=== PATIENT | female | born 1960 | race Caucasian/White ===

== ENCOUNTER 2024-01-12 06:33 | Day surgery (SDC) | payer OTHER ==
[2024-01-09 11:59] LABS: Absolute Basophils 0.1 K/uL (0-0.5); Absolute Eosinophils 0.6 K/uL (0-0.5); Absolute Lymphocytes (CBC) 1.7 K/uL (0.7-4.9); Absolute Monocytes 0.6 K/uL (0.1-1.3); Absolute Neutrophil 4.3 K/uL (1.8-8.0); Basophils % 1.3 % (0-1.3); Hematocrit 31.8 % (36.0-45.0); Hemoglobin 10.2 g/dL (12.0-15.0); Lymphocytes % 23.6 % (15.3-44.8); MCH 29.4 pg (27.0-35.0); MCHC 32.2 g/dL (32.0-36.0); MCV 91.2 fL (80-100); Neutrophils % 59.1 % (41.7-73.7); Platelets 327 thou/uL (152-406); RBC Red Blood Cell Count 3.49 M/uL (3.86-4.86); Red Cell Distribution Width 14.5 % (12.1-15.2)
[2024-01-09 12:12] LABS: Anion Gap 10.2 mEq/L (5.0-15.0); Potassium 3.2 mEq/L (3.5-5.1)
[2024-01-12] MEDS: NA CHLORIDE 0.9% 1,000 ML ONE (06:55)
[2024-01-12 07:06] VITALS: O2SAT 100
[2024-01-12] MEDS ORDERED: MIDAZOLAM HCL 2 MG/2 ML INJ ONE (07:11)
[2024-01-12] MEDS ORDERED: FENTANYL CITR 100 MCG/2 ML ONE (07:11)
[2024-01-12] MEDS ORDERED: LIDOCAINE 1% MPF 5 ML VIAL ONE (07:11)
[2024-01-12] MEDS ORDERED: propofoL 200 MG/20 ML VIAL IV ONE (07:11)
[2024-01-12] MEDS: BUPIVACAINE 0.5% PF 10 ML VIAL ONE (07:16)
[2024-01-12] MEDS: CEFAZOLIN SODIUM 2 GM/VIAL ONE (07:16)
[2024-01-12] MEDS ORDERED: EPHEDRINE SULF 50 MG/ML VIAL ONE (08:10)
[2024-01-12] MEDS ORDERED: dexAMETHasone 4 MG/ML VIAL ONE (08:16)
[2024-01-12] MEDS ORDERED: ONDANSETRON 4 MG/2 ML VIAL ONE (08:16)
[2024-01-12] MEDS ORDERED: KETOROLAC 30 MG/ML INJ ONE (08:16)
[2024-01-12] MEDS: COLLAGENASE 30 GM OINTMENT TOP ONE (08:38)
[2024-01-12] MEDS ORDERED: HYDROCODONE/APAP 7.5/325 MG TAB PO PRN (08:40)
--- NOTE | 2024-01-12 08:43 | P.OP ---
Date of Service: 01/12/24 Preop diagnosis: Sacral decubitus, nonhealing Postop diagnosis: Same Procedure performed: Excisional debridement of sacral decubitus 4 x 3.5 x 3.5 cm to subcutaneous tissue and fascia Surgeon: Frederic Chang MD Elevator Dispatcher: None Estimated blood loss: Minimal Specimen: Necrotic tissue for cultures and debridement tissue Findings: As above Anesthesia: General Complications: None Drains: None Fluids and blood products: Nonapplicable Disposition: Recovery room Operative note: Patient brought to the OR and placed in supine position. General anesthesia began. Patient placed in the right lateral position. Patient prepped and draped in the usual sterile fashion. Marcaine 0.5% infiltrated locally. Sharp dissection used to excise the edge of the wound that was hypertrophic. Bleeding controlled cautery. Necrotic fibrin debrided down to the deep subcutaneous tissue. Bleeding controlled with cautery. Wound irrigated. All nonviable tissue debrided. Infected tissue sent for cultures. Santyl wet-to-dry normal saline dressing change applied. Patient awakened and taken to recovery room in good general condition. CC:
[2024-01-12 09:39] VITALS: BP 94/55; TEMP 97.2
== END 2024-01-12 10:45 | disposition home or self-care (01) ==
LOC: DS 06:33
PROVIDERS: ATTEND Surgery
PROC: 0JB70ZZ Excision of Back Subcutaneous Tissue and Fascia, Open Approach (ICD-10-PCS; principal; 2024-01-12 07:30)
DX: L89.153 Pressure ulcer of sacral region, stage 3 (principal); E11.9 Type 2 diabetes mellitus without complications
CPT/HCPCS: 87070; 85025; 80048; 36415; 87205; 82947 ×2; 88304; 87075; 87077; 87186; 11042; J3590; J2704; J1100; J2001; J2250; J3010; J2405; J7030; 87076; 87185

== ENCOUNTER 2024-01-30 15:48 | Emergency (ER) | payer OTHER ==
[2024-01-30] MEDS ORDERED: BISACODYL E.C. 5 MG TAB PO ONE (16:35)
[2024-01-30] MEDS ORDERED: FLEET ENEMA ADULT PR ONE ×2 (16:35→18:57)
[2024-01-30] MEDS ORDERED: NA CHLORIDE 0.9% 1,000 ML ONE (16:36)
[2024-01-30 17:19] LABS: Absolute Basophils 0.1 K/uL (0-0.5); Absolute Eosinophils 0.7 K/uL (0-0.5); Absolute Lymphocytes (CBC) 2.4 K/uL (0.7-4.9); Absolute Monocytes 0.9 K/uL (0.1-1.3); Absolute Neutrophil 4.1 K/uL (1.8-8.0); Basophils % 0.9 % (0-1.3); Eosinophils % 8.7 % (0-4.4); Hematocrit 32.9 % (36.0-45.0); Hemoglobin 11.1 g/dL (12.0-15.0); Lymphocytes % 29.2 % (15.3-44.8); MCHC 33.8 g/dL (32.0-36.0); MCV 91.7 fL (80-100); MPV 7.3 fL (7.6-11.3); Monocytes % 11.1 % (3.3-12.3); Neutrophils % 50.1 % (41.7-73.7); Nucleated Red Blood Cells % 0.2 % (0-0); Platelets 346 thou/uL (152-406); RBC Red Blood Cell Count 3.59 M/uL (3.86-4.86); Red Cell Distribution Width 15.3 % (12.1-15.2)
[2024-01-30 17:31] LABS: Albumin 3.4 g/dL (3.4-5.0); Albumin/Globulin Ratio 0.7 (1.1-1.8); Anion Gap 7.4 mEq/L (5.0-15.0); Bilirubin Total 0.3 mg/dL (0.2-1.0); Potassium 3.4 mEq/L (3.5-5.1); Protein, Total 8.4 g/dL (6.4-8.2)
--- NOTE | 2024-01-30 19:14 | RAD REPORT ---
EXAMINATION: CT ABDOMEN AND PELVIS WITH CONTRAST CLINICAL INDICATION: Female, 63 years old. [facility] MAIN ABD PAIN IV ONLY Bed Name: 5 TECHNIQUE: CT abdomen and pelvis was performed, after the administration of IV contrast, as per [facility] protocol. Axial, sagittal and coronal reconstructions were obtained. One or more of the following dose reduction techniques were used: Automated exposure control, adjustment of the mA and k V according to patient size, and iterative reconstruction. Unless otherwise specified, incidental findings do not require dedicated imaging follow-up. COMPARISON: No prior exam. FINDINGS: LOWER CHEST: The visualized lung bases are clear. Elevation of the left hemidiaphragm. LIVER: Normal in size and contour. No focal lesion. BILIARY SYSTEM: Status post cholecystectomy. Prominent caliber of the common bile duct may relate to a reservoir effect. SPLEEN: Normal size. No focal lesion. PANCREAS: No mass, ductal dilation, or keyur-pancreatic fluid. ADRENALS: Normal; no mass. KIDNEYS: Normal size and contour. No hydronephrosis. URINARY BLADDER: Unremarkable. GASTROINTESTINAL TRACT: No evidence of free air, significant intra-abdominal free fluid, bowel obstru ction or abscess. Large stool burden throughout the colon. APPENDIX: Normal appendix. LYMPH NODES: No lymphadenopathy. MUSCULOSKELETAL: No acute or suspicious osseous abnormality. ADDITIONAL FINDINGS: Decubitus ulcer right paramidline at the level of the lower sacrum/coccygeal seg ments. Underlying soft tissue thickening, without appreciable fluid collections within the limits of IV contrast. No adjacent osseous destruction is appreciated. IMPRESSION: Right para midline decubitus ulcer at the level of the lower sacrum/coccygeal segments, without evide nce of underlying osseous destruction. Large stool burden throughout the colon. No other acute or concerning abnormalities seen in the abdomen or pelvis.
--- NOTE | 2024-01-30 19:25 | ER ---
Nurse's Notes [facility] Name: Stefania Temple Age: 63 yrs Sex: Female : 1960 Arrival Date: 01/30/2024 Time: 15:48 Bed 5 Private MD: Diagnosis: Constipation Presentation: 01/29 16:01 Chief complaint: Patient states: has not had a BM in one month, takes linzess and iw something else to try to make her go to the bathroom, and has tried ex-lax , takes hydrocodone. Coronavirus screen: At this time, the client does not indicate any symptoms associated with coronavirus-19. Ebola Screen: No symptoms or risks identified at this time. Initial Sepsis Screen: Does the patient meet any 2 criteria? No. Patient's initial sepsis screen is negative. Does the patient have a suspected source of infection? No. Patient's initial sepsis screen is negative. Risk Assessment: Do you want to hurt yourself or someone else? Patient reports no desire to harm self or others. Onset of symptoms was December 2023. 16:01 Method Of Arrival: Ambulatory iw 16:01 Acuity: PRASHANT 3 iw Historical: - Allergies: 16:04 Red Dye; iw 16:04 Latex, Natural Rubber; iw - PMHx: 16:04 Diabetes mellitus; neuropathy; Arthritis; iw - Immunization history:: Adult Immunizations not up to date. - Infectious Disease History:: Denies. - Social history:: Smoking status: Patient denies any tobacco usage or history of. Screenin:29 [facility] ED Fall Risk Assessment (Adult) History of falling in the last 3 months, cm10 including since admission No falls in past 3 months (0 pts) Confusion or Disorientation No (0 pts) Intoxicated or Sedated No (0 pts) Impaired Gait No (0 pts) Mobility Assist Device Used Yes (1 pt) Altered Elimination No (0 pt) Score/Fall Risk Level 0 - 2 = Low Risk Oriented to surroundings, Maintained a safe environment, Hourly rounding (assess needs \T\ fall precautionary measures) done. Abuse screen: Denies threats or abuse. Denies injuries from another. Nutritional screening: No deficits noted. Tuberculosis screening: No symptoms or risk factors identified. Assessment: 17:05 General: Appears in no apparent distress. comfortable, Behavior is calm, cooperative. cm10 Pain: Denies pain. Neuro: No deficits noted. Level of Consciousness is awake, alert, obeys commands, Oriented to person, place, time, situation, Appropriate for age. Cardiovascular: No deficits noted. Heart tones present Patient's skin is warm and dry. Respiratory: No deficits noted. Airway is patent Respiratory effort is even, unlabored, Respiratory pattern is regular, symmetrical, Breath sounds are clear bilaterally. GI: No deficits noted. Abdomen is flat, Bowel sounds present X 4 quads. Abd is soft and non tender Reports constipation. Derm: Decubitus located on sacrum. 19:41 Reassessment: Patient appears in no apparent distress at this time. No changes from cm10 previously documented assessment. Patient and/or family updated on plan of care and expected duration. Pain level reassessed. Patient is alert, oriented x 3, equal unlabored respirations, skin warm/dry/pink. Vital Signs: 16:01 BP 94 / 73; Pulse 100; Resp 16; Temp 98.4; Pulse Ox 100% on R/A; iw 17:00 BP 133 / 81; Pulse 86; Resp 15; Pulse Ox 97% on R/A; cm10 19:41 BP 94 / 68; Pulse 115; Resp 16; Pulse Ox 96% ; cm10 ED Course: 15:53 Patient arrived in ED. mg5 15:54 Becca Khanna FNP-C is PHCP. kb 15:54 Omar Lawler MD is Attending Physician. kb 16:04 Triage completed. iw 16:06 Arm band placed on. iw 16:08 PHCP role handed off by Becca Khanna FNP-C dr5 16:08 Leroy Garcia FNP-C is PHCP. dr5 16:28 Yohana Hernandez, ARMANDO is Primary Nurse. cm10 16:45 Patient has correct armband on for positive identification. Placed in gown. Bed in low cm10 position. Call light in reach. Side rails up X2. 17:05 CBC with Diff Sent. cm10 17:05 CMP Sent. cm10 17:05 Initial lab(s) drawn, by ks, sent to lab. Inserted saline lock: 20 gauge in left cm10 forearm, using aseptic technique. Blood collected. Flushed with 10 mL NS. 18:16 CT Abd/Pelvis - IV Contrast Only In Process Unspecified. EDMS 19:42 Provided Education on: Follow-up instructions.. cm10 19:42 No provider procedures requiring assistance completed. IV discontinued, intact, cm10 bleeding controlled, No redness/swelling at site. Pressure dressing applied. Administered Medications: 16:40 Drug: Dulcolax PO Delayed Release Tablet 5 mg PO once Route: PO; cm10 19:04 Follow up: Response: No adverse reaction cm10 17:05 Drug: NS 0.9% IV 1000 ml IV at 1 bolus Per protocol; 1000 mL bolus Route: IV; Rate: 1 cm10 bolus; Site: left forearm; 19:04 Follow up: Response: No adverse reaction; IV Status: Completed infusion; IV Intake: cm10 1000ml 17:16 Drug: Fleet Enema OR 133 ml OR once; may repeat once Route: OR; cm10 19:04 Follow up: Response: No adverse reaction; No change in condition cm10 19:04 Drug: Fleet Enema OR 133 ml OR once Route: OR; cm10 19:41 Follow up: Response: No adverse reaction cm10 Medication: 17:29 VIS not applicable for this client. cm10 Intake: 19:04 IV: 1000ml; Total: 1000ml. cm10 Outcome: 19:25 Discharge ordered by MD. dr5 19:42 Discharged to home ambulatory, cm10 19:42 Condition: good 19:42 Discharge instructions given to patient, Instructed on discharge instructions, follow up and referral plans. Demonstrated understanding of instructions, follow-up care, 19:42 Patient left the ED. cm10 Signatures: Dispatcher [employer] [facility] Becca Khanna, JOSEC K 9 POLICE OFFICER-Ckb Joyce Dimas RN RN iw Martinez, Clarissa, RN RN cm10 Catrachita Mercedes 5 Leroy Garcia, LEOBARDO [id number]
--- NOTE | 2024-01-30 19:25 | EDPHYS ---
Physician Documentation [facility] Name: Stefania Temple Age: 63 yrs Sex: Female : 1960 Arrival Date: 01/30/2024 Time: 15:48 Bed 5 Private MD: ED Physician Omar Lawler HPI: 01/29 16:33 This 63 yrs old Female presents to ER via Ambulatory with complaints of dr5 Constipation. 16:33 Pt is a 63 year old female presenting with constipation that's been going on for the dr5 past month. Pt has hx of IBS and taking Linzess. She also reports taking hydrocodone for the past year. She states she has had previous enemas to relieve constipation. Pt reports she is passing flatus. Pt denies nausea, vomiting, diarrhea.. 16:40 . dr5 Historical: - Allergies: 16:04 Red Dye; iw 16:04 Latex, Natural Rubber; iw - PMHx: 16:04 Diabetes mellitus; neuropathy; Arthritis; iw - Immunization history:: Adult Immunizations not up to date. - Infectious Disease History:: Denies. - Social history:: Smoking status: Patient denies any tobacco usage or history of. ROS: 16:36 Constitutional: as per hpi dr5 16:40 ENT: Moist mucous membranes. dr5 Exam: 16:36 Constitutional: This is a well developed, well nourished patient who is awake, alert, dr5 and in no acute distress. Head/Face: Normocephalic, atraumatic. ENT: Nares patent. No nasal discharge, no septal abnormalities noted. Mucous membranes moist. Abdomen/GI: Soft, non-distended. Tenderness to left upper abdomen and left lower abdomen with palpation. 17:55 Constitutional: This is a well developed, well nourished patient who is awake, alert, dr5 and in no acute distress. Head/Face: Normocephalic, atraumatic. Abdomen/GI: Soft, non-tender, non-distended. Pt has left upper and left lower abdominal tenderness to palpation. Skin: Patient has healing decubitus wound that is currently packed. No surrounding erythema, no discharge on gauze, and no tenderness to palpation. Vital Signs: 16:01 BP 94 / 73; Pulse 100; Resp 16; Temp 98.4; Pulse Ox 100% on R/A; iw 17:00 BP 133 / 81; Pulse 86; Resp 15; Pulse Ox 97% on R/A; cm10 19:41 BP 94 / 68; Pulse 115; Resp 16; Pulse Ox 96% ; cm10 MDM: 15:54 Patient medically screened. kb 16:42 Differential diagnosis: Constipation, Small vs Large Bowel Obstruction, Appendicitis. dr5 Data reviewed: vital signs, nurses notes. 16:55 Care significantly affected by the following chronic conditions: Diabetes, IBS. dr5 Counseling: I had a detailed discussion with the patient and/or guardian regarding lab results, to return to the emergency department if symptoms worsen or persist or if there are any questions or concerns that arise at home. 19:30 Consideration of Admission/Observation Escalation of care including dr5 admission/observation considered. Patient doesn't have obstruction.. I considered the following discharge prescriptions or medication management in the emergency department I discussed and recommended Over The Counter medications. Counseling: I had a detailed discussion with the patient and/or guardian regarding the historical points, exam findings, and any diagnostic results supporting the discharge/admit diagnosis, radiology results. Medication response: Enema. Response to treatment: the patient's symptoms have markedly improved after treatment. ED course: CT Abdomen / Pelvis revealed large stool burden in colon. Patient has 2 enemas with mild relief of constipation. No obstruction noted. Patient wants to go home and follow up with her PCP for further management.. ED course: She will continue doing enemas at home as needed.. 01/29 16:31 Order name: CBC with Diff; Complete Time: 17:52 [facility] 01/29 16:31 Order name: CMP; Complete Time: 17:35 [facility] 01/29 16:31 Order name: Lipase; Complete Time: 17:35 [facility] 01/29 16:31 Order name: CT Abd/Pelvis - IV Contrast Only; Complete Time: 19:18 [facility] 01/29 16:31 Order name: IV Saline Lock; Complete Time: 17:05 [facility] 01/29 16:31 Order name: Labs collected and sent; Complete Time: 17:05 dr5 Administered Medications: 16:40 Drug: Dulcolax PO Delayed Release Tablet 5 mg PO once Route: PO; cm10 19:04 Follow up: Response: No adverse reaction cm10 17:05 Drug: NS 0.9% IV 1000 ml IV at 1 bolus Per protocol; 1000 mL bolus Route: IV; Rate: 1 cm10 bolus; Site: left forearm; 19:04 Follow up: Response: No adverse reaction; IV Status: Completed infusion; IV Intake: cm10 1000ml 17:16 Drug: Fleet Enema NE 133 ml NE once; may repeat once Route: NE; cm10 19:04 Follow up: Response: No adverse reaction; No change in condition cm10 19:04 Drug: Fleet Enema NE 133 ml NE once Route: NE; cm10 19:41 Follow up: Response: No adverse reaction cm10 Disposition Summary: 01/30/24 19:25 Discharge Ordered Notes: Location: Home dr5 Condition: Stable dr5 Diagnosis - Constipation dr5 Followup: dr5 - With: Emergency Department - When: As needed - Reason: Worsening of condition Followup: dr5 - With: Private Physician - When: 2 - 3 days - Reason: Recheck today's complaints, Continuance of care, Re-evaluation by your physician Discharge Instructions: - Discharge Summary Sheet dr5 - Constipation, Adult, [id number] dr5 Forms: - Medication Reconciliation Form dr5 - Antibiotic Education dr5 - Patient Portal Instructions dr5 - Leadership Thank You Letter dr5 Signatures: Dispatcher [employer] EDBecca Newsome, VP OUTCOMES-C VP OUTCOMES-Ckb Joyce Dimas RN RN iw Yohana Hernandez RN RN cm10 Leroy Garcia, VP OUTCOMES-C VP OUTCOMES-Cdr5 Corrections: (The following items were deleted from the chart) 16:36 16:33 Pt is a 63 year old female presenting with constipation that's been going on for dr5 the past month. Pt has hx of IBS and taking . dr5 16:40 16:33 Pt is a 63 year old female presenting with constipation that's been going on for dr5 the past month. Pt has hx of IBS and taking Linzess. She also reports taking hydrocodone for the past year. She states she has had previous enemas to relieve constipation.. dr5 16:45 16:33 Pt is a 63 year old female presenting with constipation that's been going on for dr5 the past month. Pt has hx of IBS and taking Linzess. She also reports taking hydrocodone for the past year. She states she has had previous enemas to relieve constipation. Pt reports she is passing flatus.. dr5 17:57 16:40 Cardiovascular: Regular rate and rhythm with a normal S1 and S2. Normal PMI, no dr5 JVD. No pulse deficits. Respiratory: Lungs have equal breath sounds bilaterally, clear to auscultation. No rales, rhonchi or wheezes noted. No increased work of breathing, no retractions or nasal flaring. Back: Patient has healing decubitus wound that is currently packed. No surrounding erythema, no discharge on gauze, and no tenderness to palpation. dr5
[2024-01-30 20:01] VITALS: TEMP 98.4
[2024-01-30 20:06] VITALS: BP 94/68; O2SAT 96
== END 2024-01-30 19:42 | disposition home or self-care (01) ==
LOC: ER 15:48
DX: K59.00 Constipation, unspecified (principal); E11.9 Type 2 diabetes mellitus without complications
CPT/HCPCS: 96361; 85025; 36415; 83690; 80053; 74177; 96360; 99284; Q9967; J7030

== ENCOUNTER 2024-03-25 07:06 | Day surgery (SDC) | payer OTHER ==
[2024-03-22 15:50] LABS: Absolute Basophils 0.1 K/uL (0-0.5); Absolute Eosinophils 0.4 K/uL (0-0.5); Absolute Lymphocytes (CBC) 1.9 K/uL (0.7-4.9); Absolute Monocytes 0.7 K/uL (0.1-1.3); Absolute Neutrophil 3.4 K/uL (1.8-8.0); Basophils % 0.9 % (0-1.3); Eosinophils % 6.3 % (0-4.4); Hematocrit 27.3 % (36.0-45.0); Lymphocytes % 28.8 % (15.3-44.8); MCH 31.1 pg (27.0-35.0); MCV 94.1 fL (80-100); MPV 7.6 fL (7.6-11.3); Monocytes % 10.8 % (3.3-12.3); Neutrophils % 53.2 % (41.7-73.7); Platelets 288 thou/uL (152-406); Red Cell Distribution Width 13.4 % (12.1-15.2)
[2024-03-22 16:04] LABS: Anion Gap 8.3 mEq/L (5.0-15.0); Potassium 4.3 mEq/L (3.5-5.1)
[2024-03-25] MEDS: NA CHLORIDE 0.9% 1,000 ML ONE (07:30)
[2024-03-25] MEDS ORDERED: CEFAZOLIN SODIUM 2 GM/VIAL ONE (07:35)
[2024-03-25] MEDS ORDERED: BUPIVACAINE 0.5% PF 10 ML VIAL ONE (08:06)
[2024-03-25] MEDS ORDERED: SUCCINYLCHOLINE 20 MG/ML (10 ML) IV ONE (08:11)
[2024-03-25] MEDS ORDERED: MIDAZOLAM HCL 2 MG/2 ML INJ ONE (08:15)
[2024-03-25] MEDS ORDERED: ONDANSETRON 4 MG/2 ML VIAL ONE (08:15)
[2024-03-25] MEDS ORDERED: LIDOCAINE 2% MPF 5 ML VIAL ONE (08:15)
[2024-03-25] MEDS ORDERED: FENTANYL CITR 100 MCG/2 ML ONE (08:15)
[2024-03-25] MEDS ORDERED: propofoL 200 MG/20 ML VIAL IV ONE (08:15)
[2024-03-25] MEDS: CEFAZOLIN SODIUM 2 GM/VIAL IVPB ONE (08:36)
[2024-03-25] MEDS ORDERED: EPHEDRINE SULF 50 MG/ML VIAL ONE (08:38)
[2024-03-25] MEDS ORDERED: NS 0.9% VIAL 10 ML ONE (08:43)
[2024-03-25] MEDS ORDERED: Phenylephrine HCl 10 MG/ML 1 ML VIAL ONE (08:43)
[2024-03-25] MEDS ORDERED: dexAMETHasone 10 MG/ML VIAL ONE (08:43)
[2024-03-25] MEDS ORDERED: COLLAGENASE 30 GM OINTMENT TOP ONE (08:57)
[2024-03-25] MEDS ORDERED: GLYCOPYRROLATE 0.2 MG/ML SYR ONE (09:00)
[2024-03-25] MEDS: BUPIVACAINE 0.5% PF 10 ML VIAL SQ ONE ×2 (09:00)
[2024-03-25] MEDS: COLLAGENASE 30 GM OINTMENT TOP ONE (09:12)
--- NOTE | 2024-03-25 09:29 | P.OP ---
Date of Service: 03/25/24 Preop diagnosis: Nonhealing wound left hip and sacrum Postop diagnosis: Same Procedure performed: Excisional debridement of left hip wound 7 x 5 cm to subcutaneous tissue, debridement of sacral decubitus 4 x 4 cm to subcutaneous tissue Surgeon: Ferderic Chang MD Crossing Tender: None Estimated blood loss: Minimal Specimen: Debridement tissue Findings: As above Anesthesia: General Complications: None Drains: None Fluids and blood products: Nonapplicable Disposition: Recovery room Operative note: Patient brought to the OR and placed in the supine position. General anesthesia began. Patient placed in the right lateral position and prepped and draped in usual sterile fashion. Marcaine 0.5% infiltrated for postop pain control. Iris scissors and curette used to debride the left hip wound down to through the deep subcutaneous tissue. The area of debridement was approximately 7 x 5 cm. All necrotic tissue was debrided. Wound irrigated and bleeding controlled with cautery. A curette was used to debride the fibrin deposition in the sacral wound. This was done down to the subcutaneous tissue. The area of debridement was approximately 4 x 4 cm. Wound was irrigated and bleeding controlled cautery. Wound VAC with Santyl dressing was applied. Patient taught the procedure in stable condition and taken to recovery room in good general condition. CC:
[2024-03-25] MEDS ORDERED: HYDROCODONE/APAP 7.5/325 MG TAB PO PRN (09:32)
[2024-03-25] MEDS: HYDROMORPHONE HCL 1 MG/ML INJ ONE (10:01)
[2024-03-25] MEDS: HYDROCODONE/APAP 5/325 MG TAB ONE (10:40)
[2024-03-25 11:17] VITALS: BP 104/53; TEMP 96.9; O2SAT 100
--- NOTE | 2024-03-25 12:08 | EKG ---
Test Date: 2024-03-22 Test Time: 15:34:08 Baggage Clerk: LEA MEASUREMENT RESULTS: Intervals: Rate: 89 MN: 162 QRSD: 62 QT: 344 QTc: [address]: P: 61 MN: 162 QRS: 54 T: 57 INTERPRETIVE STATEMENTS: Normal sinus rhythm Low voltage QRS Septal infarct, age undetermined Abnormal ECG Compared to ECG 09/22/2023 16:02:06 Low QRS voltage now present Myocardial infarct finding now present Electronically Signed On 03-25-24 12:06:25 DAM TENDER ASSISTANT by John Noriega
== END 2024-03-25 11:09 | disposition home or self-care (01) ==
LOC: OR 07:06
PROVIDERS: ATTEND Surgery
PROC: 0JB70ZZ Excision of Back Subcutaneous Tissue and Fascia, Open Approach (ICD-10-PCS; 2024-03-25)
PROC: 0JBM0ZZ Excision of Left Upper Leg Subcutaneous Tissue and Fascia, Open Approach (ICD-10-PCS; principal; 2024-03-25 08:27)
DX: L89.153 Pressure ulcer of sacral region, stage 3 (principal); L89.221 Pressure ulcer of left hip, stage 1; E11.9 Type 2 diabetes mellitus without complications; F32.A Depression, unspecified; G89.29 Other chronic pain
CPT/HCPCS: 11042 ×2; 11045; 93005; 85025; 80048; 36415; 82947 ×2; 88304; J3590 ×2; A4216; J2704; J2371; J2003; J2250; J3010; J1100; J1171; J2405; J7030